=== PATIENT | female | born 1965 | race Caucasian/White ===

== ENCOUNTER 2017-12-31 11:42 | Emergency (ER) | payer BC ==
[2017-12-31 13:59] LABS: Amphetamine Screen,Urine Detected (NotDetected); Barbiturate Screen,Urine Not Detected (NotDetected); Benzodiazepines Screen,Urine Detected (NotDetected); Cocaine Screen,Urine Not Detected (NotDetected); Methadone Screen, Urine Not Detected (NotDetected); Opiate Screen,Urine Not Detected (NotDetected); Oxycodone Screen, Urine Not Detected (NotDetected); Phencyclidine Screen,Urine Not Detected (NotDetected); Tricyclic Antidepressant,Urine Not Detected (NotDetected); Urn Cannabinoid Scrn Not Detected (NotDetected)
--- NOTE | 2017-12-31 14:21 | ED ---
Psych HPI - General Chief Complaint: Psychiatric Symptoms Stated Complaint: mental health Time Seen by Provider: 12/31/17 12:23 Source: patient, RN notes reviewed Mode of arrival: ambulatory - History of Present Illness Initial Comments: This is a 52-year-old female history bipolar disorder who was brought in for evaluation for possible exacerbation. He is been on different levels of medication including Vyvanse. She hasn't been sleeping well and eating well. She is very anxious complains her rash some confusion racing thoughts occasional chest discomfort. Unclear what the etiology is he states he has been using a new lotion and oil. The rash is been there for about 3 days on her inner upper thighs as well as her abdominal area. Per her friend who is with her she normally starts to swimming and spirals into full-blown lisbeth or depression. No fevers chills nausea vomiting sweats no drug or alcohol use. MD Complaint: other - Related Data Home Medications Medication Instructions Recorded Confirmed Levothyroxine Sodium [Synthroid] 100 mcg PO DAILY@0000 05/11/16 12/31/17 Cholecalciferol [Vitamin D3] 1,000 unit PO DAILY 12/31/17 12/31/17 Lisdexamfetamine Dimesylate 40 mg PO QAM 12/31/17 12/31/17 [Vyvanse] Lurasidone [Latuda] 40 mg PO HS 12/31/17 12/31/17 Sesame Oil 1 cap PO DAILY 12/31/17 12/31/17 Silver Drop 1 drop PO DAILY 12/31/17 12/31/17 Vitamin B Complex/Folic Acid 0.4 mg PO DAILY 12/31/17 12/31/17 [B-Complex Tablet] Wheat Germ 1 tab PO DAILY 12/31/17 12/31/17 Allergies Allergy/AdvReac Type Severity Reaction Status Date / Time No Known Allergies Allergy Verified 12/31/17 12:42 Review of Systems ROS Statement: Those systems with pertinent positive or pertinent negative responses have been documented in the HPI. ROS Other: All systems not noted in ROS Statement are negative. Past Medical History Past Medical History: No Reported History History of Any Multi-Drug Resistant Organisms: None Reported Past Surgical History: Tonsillectomy Additional Past Surgical History / Comment(s): D&C, colonoscopy Past Anesthesia/Blood Transfusion Reactions: No Reported Reaction Past Psychological History: ADD/ADHD, Anxiety, Bipolar Smoking Status: Never smoker Past Alcohol Use History: None Reported Past Drug Use History: None Reported - Past Family History Mother Additional Family Medical History / Comment(s): Mother is alive and healthy at age 74. Father Additional Family Medical History / Comment(s): Father is alive and well at age 79, pts. paternal grandfather had an ND Brother(s) Additional Family Medical History / Comment(s): Patient has 4 brothers one from suicide. She has 1 sister with no major medical problems. General Exam - General Exam Comments Initial Comments: This is a well-developed well-nourished awake alert oriented 3 female she is very anxious Limitations: no limitations General appearance: alert, in no apparent distress Head exam: Present: atraumatic, normocephalic, normal inspection Eye exam: Present: normal appearance, PERRL, EOMI. Absent: scleral icterus, conjunctival injection, periorbital swelling ENT exam: Present: normal exam, mucous membranes moist Neck exam: Present: normal inspection. Absent: tenderness, meningismus, lymphadenopathy Respiratory exam: Present: normal lung sounds bilaterally. Absent: respiratory distress, wheezes, rales, rhonchi, stridor Cardiovascular Exam: Present: regular rate, normal rhythm, normal heart sounds. Absent: systolic murmur, diastolic murmur, rubs, gallop, clicks GI/Abdominal exam: Present: other (A macular rash is noted on the abdominal wall. No definite open wounds.) Extremities exam: Present: full ROM, normal capillary refill, other (Verified erythematous rash noted in her thighs bilaterally.) Back exam: Present: full ROM. Absent: tenderness Neurological exam: Present: alert, oriented X3, CN II-XII intact Psychiatric exam: Present: anxious Skin exam: Present: warm, dry, intact. Absent: normal color Course Vital Signs 12/31/17 12/31/17 12:06 14:20 Temperature 98.1 F 98.5 F Pulse Rate 68 72 Respiratory 20 16 Rate Blood Pressure 113/76 129/71 O2 Sat by Pulse 98 98 Oximetry Medical Decision Making - Medical Decision Making The patient was evaluated by psychiatric service and will be discharged with outpatient follow-up. - Lab Data Lab Results 12/31/17 Range/Units 13:30 Urine Opiates Screen Not Detected (NotDetected) Ur Oxycodone Screen Not Detected (NotDetected) Urine Methadone Screen Not Detected (NotDetected) Ur Propoxyphene Screen Not Detected (NotDetected) Ur Barbiturates Screen Not Detected (NotDetected) U Tricyclic Antidepress Not Detected (NotDetected) Ur Phencyclidine Scrn Not Detected (NotDetected) Ur Amphetamines Screen Detected H (NotDetected) U Methamphetamines Scrn Not Detected (NotDetected) U Benzodiazepines Scrn Detected H (NotDetected) Urine Cocaine Screen Not Detected (NotDetected) U Marijuana (THC) Screen Not Detected (NotDetected) Disposition Clinical Impression: Bipolar disorder Disposition: HOME SELF-CARE Condition: Good Instructions: Bipolar Disorder (ED) Additional Instructions: Follow-up outpatient as per instructions from the EPS service Is patient prescribed a controlled substance at d/c from ED?: No Referrals: Ryne Ngo MD [Primary Care Provider] - 1-2 days
[2017-12-31 16:17] VITALS: BP 108/84; PULSE 64; RESP 18; TEMP 98
== END 2017-12-31 16:14 | disposition home or self-care (01) ==
LOC: EC 11:42
DX: F31.9 Bipolar disorder, unspecified (principal); F41.9 Anxiety disorder, unspecified; R21 Rash and other nonspecific skin eruption; F90.9 Attention-deficit hyperactivity disorder, unspecified type; Z79.899 Other long term (current) drug therapy
CPT/HCPCS: 80306; 82075; 99284

== ENCOUNTER 2018-01-05 20:04 | Inpatient (IN) | payer BC ==
--- NOTE | 2018-01-05 20:48 | ED ---
Psych HPI - General Chief Complaint: Psychiatric Symptoms Stated Complaint: eval Time Seen by Provider: 01/05/18 20:43 Source: patient, family, RN notes reviewed Mode of arrival: ambulatory - History of Present Illness Initial Comments: This is a 52-year-old female history of bipolar disorder who was brought in by her because of manic behavior. She was actually here 5 days ago and discharge but she become worse since that time. She is apparently taking medications that she is supposed to she's not been sleeping even manic she's been delusional demonstrating flight of ideas. She complains some bruises she thinks she may be she didn't moving furniture and doing many things. No reports of fevers chills nausea vomiting sweats or other symptoms. Patient does states she doesn't feel comfortable with the color blue which are the color of my scrubs. There is reported that she may be having urinary frequency. No other complaints she does have some old bruising the patient's is unsure how she got those he is unaware of any trauma other than anywhere moving some furniture today. MD Complaint: feels depressed - Related Data Home Medications Medication Instructions Recorded Confirmed Levothyroxine Sodium [Synthroid] 100 mcg PO DAILY@0000 05/11/16 12/31/17 Cholecalciferol [Vitamin D3] 1,000 unit PO DAILY 12/31/17 12/31/17 Lisdexamfetamine Dimesylate 40 mg PO QAM 12/31/17 12/31/17 [Vyvanse] Lurasidone [Latuda] 40 mg PO HS 12/31/17 12/31/17 Sesame Oil 1 cap PO DAILY 12/31/17 12/31/17 Silver Drop 1 drop PO DAILY 12/31/17 12/31/17 Vitamin B Complex/Folic Acid 0.4 mg PO DAILY 12/31/17 12/31/17 [B-Complex Tablet] Wheat Germ 1 tab PO DAILY 12/31/17 12/31/17 Allergies Allergy/AdvReac Type Severity Reaction Status Date / Time No Known Allergies Allergy Verified 12/31/17 12:42 Review of Systems ROS Statement: Those systems with pertinent positive or pertinent negative responses have been documented in the HPI. ROS Other: All systems not noted in ROS Statement are negative. Past Medical History Past Medical History: No Reported History History of Any Multi-Drug Resistant Organisms: None Reported Past Surgical History: Tonsillectomy Additional Past Surgical History / Comment(s): D&C, colonoscopy Past Anesthesia/Blood Transfusion Reactions: No Reported Reaction Past Psychological History: ADD/ADHD, Anxiety, Bipolar Smoking Status: Current every day smoker Past Alcohol Use History: Occasional Past Drug Use History: None Reported - Past Family History Mother Additional Family Medical History / Comment(s): Mother is alive and healthy at age 74. Father Additional Family Medical History / Comment(s): Father is alive and well at age 79, pts. paternal grandfather had an [place] Brother(s) Additional Family Medical History / Comment(s): Patient has 4 brothers one from suicide. She has 1 sister with no major medical problems. General Exam - General Exam Comments Initial Comments: This is a well-developed well-nourished awake alert anxious appearing female she does demonstrate a flight of ideas and manic behavior. Limitations: no limitations General appearance: alert, anxious Head exam: Present: atraumatic, normocephalic, normal inspection Eye exam: Present: normal appearance, PERRL, EOMI. Absent: scleral icterus, conjunctival injection, periorbital swelling ENT exam: Present: normal exam, mucous membranes moist Neck exam: Present: normal inspection. Absent: tenderness, meningismus, lymphadenopathy Respiratory exam: Present: normal lung sounds bilaterally. Absent: respiratory distress, wheezes, rales, rhonchi, stridor Cardiovascular Exam: Present: regular rate, normal rhythm, normal heart sounds. Absent: systolic murmur, diastolic murmur, rubs, gallop, clicks GI/Abdominal exam: Present: soft, normal bowel sounds. Absent: distended, tenderness, guarding, rebound, rigid Extremities exam: Present: normal inspection, full ROM, normal capillary refill. Absent: tenderness, pedal edema, joint swelling, calf tenderness Back exam: Present: normal inspection Neurological exam: Present: alert, oriented X3, CN II-XII intact Psychiatric exam: Present: anxious, manic Skin exam: Present: warm, dry, intact, other (Some evidence of old ecchymotic areas one on the left lateral orbit and on the wrists.). Absent: rash Course Vital Signs 01/05/18 20:11 Temperature 98.2 F Pulse Rate 90 Respiratory 18 Rate Blood Pressure 116/65 O2 Sat by Pulse 98 Oximetry Medical Decision Making - Medical Decision Making The patient was evaluated by psychiatric service and will be admitted. She is refusing assigning her and the petition negative clinical certification. - Lab Data Lab Results 01/05/18 01/05/18 01/05/18 Range/Units 20:42 20:42 20:42 Urine Color Yellow Urine Appearance Clear (Clear) Urine pH 6.0 (5.0-8.0) Ur Specific [place] 1.020 (1.001-1.035) Urine Protein Trace H (Negative) Urine Glucose (UA) Negative (Negative) Urine Ketones 1+ H (Negative) Urine Blood Trace H (Negative) Urine Nitrite Negative (Negative) Urine Bilirubin Negative (Negative) Urine Urobilinogen 2.0 (<2.0) mg/dL Ur Leukocyte Esterase Moderate H (Negative) Urine RBC 12 H (0-5) /hpf Urine WBC 5 (0-5) /hpf Ur Squamous Epith Cells 4 (0-4) /hpf Urine Bacteria Rare H (None) /hpf Urine Mucus Rare H (None) /hpf Urine HCG, Qual Not Detected (Not Detectd) Urine Opiates Screen Not Detected (NotDetected) Ur Oxycodone Screen Not Detected (NotDetected) Urine Methadone Screen Not Detected (NotDetected) Ur Propoxyphene Screen Not Detected (NotDetected) Ur Barbiturates Screen Not Detected (NotDetected) U Tricyclic Antidepress Detected H (NotDetected) Ur Phencyclidine Scrn Not Detected (NotDetected) Ur Amphetamines Screen Not Detected (NotDetected) U Methamphetamines Scrn Not Detected (NotDetected) U Benzodiazepines Scrn Detected H (NotDetected) Urine Cocaine Screen Not Detected (NotDetected) U Marijuana (THC) Screen Not Detected (NotDetected) Disposition Clinical Impression: Bipolar I disorder, current or most recent episode manic, severe Disposition: TRANSFER TO PSYCH HOSP/UNIT Condition: Stable Referrals: Ryne Ngo MD [Primary Care Provider] - 1-2 days
[2018-01-05 20:52] LABS: Appearance,Urine Clear (Clear); Bacteria,Urine Rare /hpf; Bilirubin,Urine Negative (Negative); Blood,Urine Trace (Negative); Color,Urine Yellow; Glucose,Urine (UA) Negative (Negative); Ketones,Urine 1+ (Negative); Leukocyte Esterase,Urine Moderate (Negative); Mucus,Urine Rare /hpf; Nitrite,Urine Negative (Negative); Protein,Urine Trace (Negative); RBC,Urine 12 /hpf (0-5); Squamous Epithelial Cell,Urine 4 /hpf (0-4); WBC,Urine 5 /hpf (0-5)
[2018-01-05 21:02] LABS: Amphetamine Screen,Urine Not Detected (NotDetected); Barbiturate Screen,Urine Not Detected (NotDetected); Benzodiazepines Screen,Urine Detected (NotDetected); Cocaine Screen,Urine Not Detected (NotDetected); Methadone Screen, Urine Not Detected (NotDetected); Opiate Screen,Urine Not Detected (NotDetected); Oxycodone Screen, Urine Not Detected (NotDetected); Phencyclidine Screen,Urine Not Detected (NotDetected); Tricyclic Antidepressant,Urine Detected (NotDetected); Urn Cannabinoid Scrn Not Detected (NotDetected)
[2018-01-05] MEDS ORDERED: MAGNESIUM HYDROXIDE 2,400 MG/10 ML CUP PO PRN (22:26)
[2018-01-05] MEDS ORDERED: MAG HYDROX/AL HYDROX/SIMETH 30 ML CUP PO PRN (22:26)
[2018-01-05] MEDS ORDERED: ACETAMINOPHEN TAB 325 MG TAB PO PRN (22:26)
[2018-01-05] MEDS ORDERED: ZIPRASIDONE 20 MG VIAL IM PRN (22:26)
[2018-01-05] MEDS ORDERED: LORazepam 2 MG/ML INJ ONE (22:37)
[2018-01-05] MEDS ORDERED: HALOPERIDOL LACTATE 5 MG/ML 1 ML VIAL IM STA (23:00)
[2018-01-05] MEDS ORDERED: LORazepam 2 MG/ML INJ IM STA (23:01)
[2018-01-05] MEDS: LORazepam 2 MG/ML INJ IM PRN (23:04)
[2018-01-06 03:55] VITALS: BMI 25.2
[2018-01-06] MEDS ORDERED: LEVOTHYROXINE 100 MCG TAB PO SCH (06:30)
[2018-01-06] MEDS: DIVALPROEX 500 MG TABLET.DR PO SCH ×2 (08:57→21:26)
[2018-01-06] MEDS ORDERED: NICOTINE 14MG/24HR PATCH TRANSDERM SCH (09:00)
[2018-01-06 09:46] LABS: ALT 28 U/L (9-52); AST 28 U/L (14-36); Albumin 4.3 g/dL (3.5-5.0); Alkaline Phosphatase 89 U/L (38-126); Anion Gap 13 mmol/L; Bilirubin, Delta 0.3 mg/dL (0.0-0.2); Bilirubin,Unconjugated 0.7 mg/dL (0.0-1.1); Blood Urea Nitrogen 14 mg/dL (7-17); Calcium 9.3 mg/dL (8.4-10.2); Carbon Dioxide 27 mmol/L (22-30); Chloride 103 mmol/L (98-107); Cholesterol 169 mg/dL (<200); Glucose 155 mg/dL (74-99); HDL Cholesterol 79 mg/dL (40-60); LDL Cholesterol,Calculated 77 mg/dL (0-99); Potassium 3.8 mmol/L (3.5-5.1); Sodium 143 mmol/L (137-145); Total Protein 6.8 g/dL (6.3-8.2); Triglycerides 65 mg/dL (<150)
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
[2018-01-06] MEDS: METOPROLOL TARTRATE 12.5 MG TAB PO SCH ×2 (16:00→21:26)
--- NOTE | 2018-01-06 17:17 | CONS ---
CONSULTATION DATE OF CONSULTATION: January 06, 2018. REASON FOR CONSULTATION: Medical management requested by Dr. Gomez. CONSULTATION: This is a 52-year-old patient who presented to the ER last night. The patient has a known history of bipolar disorder with manic episode. She is brought in by the . She was in the ER 4 or 5 days ago and discharged from there. The patient has not been sleeping well, has been taking medications and has been delusional and demonstrating flight of ideas. During my interview she is very uncomfortable, walking up and down and cannot sit down. She talked about moving furniture and she may be . Denies any respiratory or urinary symptoms. She talked about a cat. She is rather hungry. She is admitted with manic episode to the psychiatry unit. The patient apparently is a smoker and the patient also takes Synthroid. It is difficult to get more of a history as she keeps getting up and walking about and have to sit her down. Otherwise, she is very pleasant in the conversation. REVIEW OF SYSTEMS: Constitutional: Restless, not sleeping well. Good appetite. HEENT none. Respiratory none. Cardiovascular none. Gastrointestinal none. Genitourinary none. Musculoskeletal none. Dermatological and hematologic, lymphatic none. Psychiatry as above. Neurological: Restless, fidgety. PAST MEDICAL HISTORY: Bipolar disorder with manic episode, hypothyroid. PAST SURGICAL HISTORY: Tonsillectomy, D and C. SOCIAL HISTORY: The patient is a middle school english teacher. . Occasionally drinks. No smoking. No alcohol. FAMILY HISTORY: Reviewed, noncontributory to presentation. HOME MEDICATIONS: 1 tablet p.o. daily, vitamin B complex 0.4 mg p.o. daily, 1 drop p.o. daily, sesame oil 1 capsule p.o. daily, Latuda 40 mg q.h.s., 40 mg p.o. daily. Synthroid 100 mcg p.o. daily and vitamin D3 1000 units p.o. daily. ALLERGIES: None. PHYSICAL EXAMINATION: Temperature 97.3, pulse 82, respiratory 18, blood pressure 119/76, pulse ox 97% on room air. GENERAL APPEARANCE: Average build, fidgety, walking about and sits down. EYES: Pupils are equal. Conjunctivae normal. HEENT: External appearance of nose and ears normal. Oral cavity normal. NECK: JVD not raised. Mass not palpable. RESPIRATORY: Effort normal. Lungs fair entry. CARDIOVASCULAR: 1st and 2nd sounds normal. No edema. ABDOMEN: Soft, nontender. Liver and spleen not palpable. LYMPHATICS: No lymph nodes palpable in the neck or axilla. PSYCHIATRY: See my notes above and more details in the psychiatry's notes. NEUROLOGICAL: Pupils, no facial asymmetry. Power and sensation grossly intact, restlessness. INVESTIGATIONS: Potassium 3.8. TSH 0.075 and free T4 3.49. UA positive for leukocyte esterase. Urine drug screen positive for tricyclic antidepressants, benzodiazepine. Valproic acid 86.7. ASSESSMENT: 1. Bipolar disorder with manic episode with element of psychosis. 2. Thyrotoxicosis from over replacement with Synthroid, possibly contributing to symptoms above. 3. Insomnia from above. PLAN: At this point will DC patient's Synthroid as the increased half-life and will resume at half the dose after 48 hours. Other antipsychotics per the psychiatrist. To curtail, I did not check overdrive. Will give the patient Lopressor 12.5 p.o. 3 times a day for 6 doses. Thank you, Dr. Gomez. MMRIOL / IJN: [id number] /
[2018-01-06] MEDS: LORazepam 1 MG TAB PO PRN (17:26)
[2018-01-06 18:46] LABS: Hemoglobin A1C 4.8 % (4.0-6.0)
[2018-01-06] MEDS: QUEtiapine 200 MG TAB PO SCH (21:26)
[2018-01-07] MEDS: LORazepam 1 MG TAB PO PRN ×2 (06:00→16:25)
[2018-01-07] MEDS: DIVALPROEX 500 MG TABLET.DR PO SCH ×2 (09:29→21:43)
[2018-01-07] MEDS: METOPROLOL TARTRATE 12.5 MG TAB PO SCH ×3 (09:29→21:43)
--- NOTE | 2018-01-07 14:27 | P.PN ---
Subjective Progress Note Date: 01/07/18 Principal diagnosis: Bipolar disorder most recent episode manic I reviewed the medical record, attempted to interview the patient and discuss her treatment and treatment plan during team meeting. She remains on one-to- one due to her restless, impulsive and aggressive behavior. She has difficulty sitting still or attending to a conversation. Her answers to questions were tangential. Objective - Vital Signs Vital signs: Vital Signs Temp 97.3 F L 01/05/18 22:11 Pulse 105 H 01/07/18 06:05 Resp 16 01/07/18 06:05 BP 108/72 01/07/18 06:05 Pulse Ox 97 01/05/18 22:11 - Psychiatric Psychiatric Comment(s): She presented as a tall disheveled appearing woman with long unkempt dark hair. She had difficulty concentrating and attending to the interview. She had a distressed and labile facial expression. She is alert and oriented to person and place. She was restless, agitated and unable to sit still during the interview. She would get up frequently and paced the room Her speech was spontaneous with increased rate and rhythm but normal volume. Her affect was labile, irritable and elevated. She did not express suicidal ideation, wishes or homicidal ideation. She did not expressed depressive cognitions such as hopelessness, helplessness or worthlessness. She did not express clear paranoid or delusional thoughts or ideas. Her thinking was disorganized, illogical and not goal directed. She demonstrated clang associations and neologisms. She denied hallucinations and did not appear to be responding to internal stimuli. - Labs CBC & Chem 7: 01/06/18 08:29 Assessment and Plan Assessment: Overall she is severely mentally ill and minimally improve from admission (1) Bipolar I disorder, current or most recent episode manic, severe Current Visit: Yes Status: Acute Priority: High Code(s): F31.13 - BIPOLAR DISORD, CRNT EPSD MANIC W/O PSYCH FEATURES, SEVERE SNOMED Code(s): 013081767 (2) Essential hypertension Current Visit: Yes Status: Chronic Priority: Low Code(s): I10 - ESSENTIAL (PRIMARY) HYPERTENSION SNOMED Code(s): 46265361 (3) Hyperthyroidism Current Visit: Yes Status: Acute Priority: High Code(s): E05.90 - THYROTOXICOSIS, UNSP WITHOUT THYROTOXIC CRISIS OR STORM SNOMED Code(s): 67123183 Plan: Continue inpatient hospitalization due to severity of lisbeth. Probate hearing for involuntary hospitalization pending. Continue Depakote 500 mg by mouth twice a day, Seroquel 600 mg at bedtime and lorazepam 1 mg by mouth 3 times a day when necessary for anxiety or agitation and/or 1 mg IM every 6 hours when necessary for agitation acute psychosis. Continue Lopressor 12.5 mg by mouth 3 times a day for treatment of hypertension. The [employer] sales consultant action finisher reduced her dose of Synthroid to 50 g per day. Continue one-to-one. Evaluate clinical status response to treatment daily basis. She is unable to participate in therapeutic groups or activities at the current time.
[2018-01-07] MEDS: QUEtiapine 200 MG TAB PO SCH (21:43)
--- NOTE | 2018-01-07 22:15 | PN ---
PROGRESS NOTE DATE OF SERVICE: 01/07/2018 PRESENTING COMPLAINT: Psychotic. INTERVAL HISTORY: This patient presented with bipolar disorder with psychosis and element of hyperthyroidism, uncontrolled from over replacement. The patient is somewhat better today, although is still psychotic, though less fidgety. REVIEW OF SYSTEMS: Done for constitutional, cardiovascular, GI, pulmonary; relevant findings as above. CURRENT MEDICATIONS: Reviewed that include Depakote, Lopressor, and Seroquel. PHYSICAL EXAMINATION: Temperature on examination afebrile, pulse 107, respiration 20, blood pressure 113/73. GENERAL APPEARANCE: Less fidgety. EYES: Pupils are equal. Conjunctivae are normal. HEENT: External appearance of nose and ears normal. Oral cavity normal. NECK: JVD not raised. Mass not palpable. Respiratory effort normal. Lungs are clear. CARDIOVASCULAR: First and second sounds normal. No edema. NEUROLOGICAL: There is no tremor of the resting tongue and there is fine tremor of the hands. INVESTIGATIONS: No blood work from today. ASSESSMENT: 1. Bipolar disorder with manic episode with element of psychosis. 2. 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 3. Insomnia from above. PLAN: The patient's dose of Synthroid has been cut back. We will check patient's free T4 level tomorrow. Care was discussed with Dr. Gomez. Follow. MMODL / IJN: [id number] /
[2018-01-08] MEDS: DIVALPROEX 500 MG TABLET.DR PO SCH ×2 (08:43→20:45)
[2018-01-08] MEDS: METOPROLOL TARTRATE 12.5 MG TAB PO SCH (10:17)
--- NOTE | 2018-01-08 15:29 | P.PN ---
Subjective Progress Note Date: 01/08/18 Principal diagnosis: Bipolar disorder most recent episode manic I reviewed the medical record, interviewed the patient and discuss her treatment and treatment plan during team meeting. She remains on one-to-one due to her restless and impulsive behavior. She sat during most of the interview only once getting up and pacing the office. Her primary concern was discharged and she requested several times to be discharged. She was able to focus briefly and answered questions appropriately. She shows little insight or understanding of the severity of her mental illness or need for mental health treatment. According to record she slept 6 hours last night. She has not attended therapeutic groups or activities. Objective - Vital Signs Vital signs: Vital Signs Temp 97.3 F L 01/05/18 22:11 Pulse 107 H 01/07/18 16:27 Resp 20 01/07/18 16:27 BP 111/73 01/07/18 16:27 Pulse Ox 97 01/05/18 22:11 - Psychiatric Psychiatric Comment(s): She presented as a tall woman with long thick dark hair. She had she was able to concentrate and attend to to most of the interview and remain on topic for brief periods of time. She had a distressed facial expression. She appeared sedated. She is alert and oriented to person and place. She was restless but sat during the bulk of the interview. Her speech was spontaneous with increased rate and decreased volume. Her affect was labile and elevated. She did not express suicidal ideation, wishes or homicidal ideation. She did not expressed depressive cognitions such as hopelessness, helplessness or worthlessness. She did not express clear paranoid or delusional thoughts or ideas. Her thinking was disorganized, illogical and not goal directed. She demonstrated clang associations and neologisms. She denied hallucinations and did not appear to be responding to internal stimuli. - Labs CBC & Chem 7: 01/06/18 08:29 Assessment and Plan Assessment: Overall she is severely mentally ill and moderately improve from admission (1) Bipolar I disorder, current or most recent episode manic, severe Current Visit: Yes Status: Acute Priority: High Code(s): F31.13 - BIPOLAR DISORD, CRNT EPSD MANIC W/O PSYCH FEATURES, SEVERE SNOMED Code(s): 939315884 (2) Essential hypertension Current Visit: Yes Status: Chronic Priority: Low Code(s): I10 - ESSENTIAL (PRIMARY) HYPERTENSION SNOMED Code(s): 40280198 (3) Hyperthyroidism Current Visit: Yes Status: Acute Priority: High Code(s): E05.90 - THYROTOXICOSIS, UNSP WITHOUT THYROTOXIC CRISIS OR STORM SNOMED Code(s): 26176275 Plan: Continue inpatient hospitalization due to severity of lisbeth. Probate hearing for involuntary hospitalization pending. Continue Depakote 500 mg by mouth twice a day, Seroquel 600 mg at bedtime and lorazepam 1 mg by mouth 3 times a day when necessary for anxiety or agitation and/or 1 mg IM every 6 hours when necessary for agitation acute psychosis. Continue Lopressor 12.5 mg by mouth 3 times a day for treatment of hypertension. Continue Synthroid to 50 g per day for the treatment of hypothyroid and adjust the dose as per the recommendation of the devops consultant. Evaluate clinical status response to treatment daily basis. She is unable to participate in therapeutic groups or activities at the current time.
[2018-01-08] MEDS: LORazepam 1 MG TAB PO PRN (15:36)
--- NOTE | 2018-01-08 17:58 | PN ---
PROGRESS NOTE DATE OF SERVICE: 01/08/2018 PRESENTING COMPLAINT: Psychotic. INTERVAL HISTORY: This patient presented with bipolar disorder with psychosis and lisbeth and thyrotoxicosis. The patient's Synthroid dose continues to be held. The patient continues to improve, making more sense, though still a little bit more restless. The patient tolerating a diet. REVIEW OF SYSTEMS: Done for constitutional, cardiovascular, GI, pulmonary; relevant findings as above. CURRENT MEDICATIONS: Reviewed. Patient's Synthroid remains to be held. EXAMINATION: Afebrile, pulse 103, respirations 18, blood pressure 97/66. GENERAL APPEARANCE: Less restless. EYES: Pupils equal. Conjunctivae normal. HEENT: External appearance of nose and ears normal. Oral cavity normal. NECK: JVD not raised. Mass not palpable. RESPIRATORY: Effort normal. LUNGS: Fair air entry. CARDIOVASCULAR: First and second sounds normal. No edema. ABDOMEN: Soft, nontender. Liver and spleen not palpable. PSYCHIATRY: The patient's speech appears to be less pressured; hence, the patient is somewhat making more sense today. NEUROLOGICAL: No tremors of the hands and tongue. INVESTIGATIONS: Free T4 is 2.70. ASSESSMENT: 1. Bipolar disorder, manic episode with element of psychosis. 2. Thyrotoxicosis from overreplacement with Synthroid, slowly improving. 3. Insomnia from above. 4. Sinus tachycardia from thyrotoxicosis. PLAN: Continue to hold off patient's Synthroid. The patient to resume 50 mg of Synthroid starting tomorrow and that is the dose she should be sent home on. Thank you Dr. Gomez. MMRIOL / IJN: [id number] /
[2018-01-08] MEDS: QUEtiapine 200 MG TAB PO SCH (20:45)
[2018-01-09] MEDS: LORazepam 1 MG TAB PO PRN ×3 (01:35→18:02)
[2018-01-09] MEDS ORDERED: LEVOTHYROXINE 50 MCG TAB PO SCH (06:30)
[2018-01-09] MEDS: DIVALPROEX 500 MG TABLET.DR PO SCH ×2 (08:01→20:56)
--- NOTE | 2018-01-09 14:47 | P.PN ---
Subjective Principal diagnosis: Bipolar disorder most recent episode manic I reviewed the medical record, interviewed the patient and discuss her treatment and treatment plan during team meeting. We discontinue the one-to- one yesterday and she has shown no increase in impulsivity or disruptive behavior. She paces the unit and is occasionally observed talking to herself. During our interview she is preoccupied with discharged. She denied the need for continued hospitalization. However, she accepted my recommendation to remain in the hospital. According to record she slept 6 hours last night. She does not attended therapeutic groups or activities. Objective - Vital Signs Vital signs: Vital Signs Temp 97.7 F 01/09/18 02:20 Pulse 132 H 01/09/18 02:20 Resp 18 01/09/18 02:20 BP 89/60 01/09/18 02:20 Pulse Ox 97 01/05/18 22:11 - Psychiatric Psychiatric Comment(s): She presented as a tall woman with long thick dark hair. She was able to concentrate and attend to to most of the interview and remain on topic for brief periods of time. She had a distressed facial expression. She appeared less sedated than she did yesterday. She is alert and oriented to person and place. She was restless but sat during the bulk of the interview. Her speech was spontaneous with increased rate and decreased volume. Her affect was labile and elevated. She did not express suicidal ideation, wishes or homicidal ideation. She did not expressed depressive cognitions such as hopelessness, helplessness or worthlessness. She did not express clear paranoid or delusional thoughts or ideas. Her thinking was disorganized, illogical and not goal directed. She continues to demonstrated clang associations and neologisms. She denied hallucinations and did not appear to be responding to internal stimuli. - Labs CBC & Chem 7: 01/06/18 08:29 Labs: Abnormal Lab Results - Last 24 Hours (Table) 01/09/18 Range/Units 13:02 Free T4 2.50 H (0.78-2.19) ng/dL Assessment and Plan Assessment: Overall she is moderately to severely mentally ill and moderately improve from admission (1) Bipolar I disorder, current or most recent episode manic, severe Current Visit: Yes Status: Acute Priority: High Code(s): F31.13 - BIPOLAR DISORD, CRNT EPSD MANIC W/O PSYCH FEATURES, SEVERE SNOMED Code(s): 188596349 (2) Hyperthyroidism Current Visit: Yes Status: Acute Priority: High Code(s): E05.90 - THYROTOXICOSIS, UNSP WITHOUT THYROTOXIC CRISIS OR STORM SNOMED Code(s): 18204618 Plan: Continue inpatient hospitalization due to severity of lisbeth. Probate hearing for involuntary hospitalization pending. Continue Depakote 500 mg by mouth twice a day, Seroquel 600 mg at bedtime and lorazepam 1 mg by mouth 3 times a day when necessary for anxiety or agitation and/or 1 mg IM every 6 hours when necessary for agitation acute psychosis. Continue Synthroid to 50 g per day for the treatment of hypothyroid and adjust the dose as per the recommendation of the building performance consultant. Evaluate clinical status response to treatment daily basis. She is unable to participate in therapeutic groups or activities at the current time.
[2018-01-09] MEDS: QUEtiapine 200 MG TAB PO SCH (20:56)
[2018-01-09] MEDS: LORazepam 2 MG/ML INJ IM PRN (23:57)
--- NOTE | 2018-01-10 06:21 | PN ---
PROGRESS NOTE DATE OF SERVICE: 01/09/18. PRESENT COMPLAINT: Hyperactive. INTERVAL HISTORY: This is a patient who presented with bipolar disorder with psychosis and manic episode with significant contribution from thyrotoxicosis. The patient's Synthroid dose was held and the patient did get a dose this morning 50 mg. Clinically patient is looking more calm, more relaxed, and probably getting close to her baseline. Tolerating a diet, up and about. REVIEW OF SYSTEMS: Done for constitutional, cardiovascular, GI, pulmonary; relevant findings as above. MEDICATIONS: The patient did get one dose of Synthroid this morning. PHYSICAL EXAMINATION: On examination: Temperature 97.7, pulse 103, respiration 18, blood pressure 97/66. GENERAL APPEARANCE: Appears more rested. EYES: Pupils equal. Conjunctivae normal. HEENT: External appearance of nose and ears are normal. Oral cavity normal. NECK: JVD not raised. Mass not palpable. RESPIRATORY: Effort normal. Lungs are clear. CARDIOVASCULAR: 1st and 2nd sounds, no edema. ABDOMEN: Soft, nontender. Liver and spleen not palpable. PSYCHIATRY: The patient appears more relaxed and is able to carry out a conversation regarding Synthroid. INVESTIGATIONS: Free T4 2.5. ASSESSMENT: 1. Bipolar disorder, manic episode with some psychosis. 2. Thyrotoxicosis from over replacement of Synthroid. Continues to improve with free T4 coming down. 3. Insomnia for above. 4. Sinus tachycardia from thyrotoxicosis. PLAN: Spoke to the patient. Also spoke to the nurse. We will hold off tomorrow morning of Synthroid and resume the Synthroid from 01/11/18 and patient can be sent home on that dose with the TSH level to be checked anywhere from 4-6 weeks. MMODL / IJN: [id number] /
[2018-01-10] MEDS: DIVALPROEX 500 MG TABLET.DR PO SCH ×2 (09:26→20:53)
--- NOTE | 2018-01-10 13:34 | P.PN ---
Subjective Progress Note Date: 01/10/18 Principal diagnosis: Bipolar disorder most recent episode manic I reviewed the medical record, interviewed the patient and discuss her treatment and treatment plan during team meeting. She became markedly agitated yesterday evening where she attempted to barricade her room from her roommate, threw towels, washrag and her clothes over the desk and attempted to rummage through her roommate's belongings. Her agitation diminished considerably after we administered1 mg of lorazepam IM. She recalled that she was "upset" and attempted to explain the reason for distress. However her speech was slurred and she had difficulty remaining on topic. The best that I couldn't understand is that she does not wish to have a roommate and does not wish to remain in the hospital. She talked about feeling "paranoid" because she could not lock her bedroom door. As during prior interviews she was preoccupied with being discharged. She denied the need for continued hospitalization. She was less receptive to my recommendation that she remains unwell and should remain in the hospital until she recovers more. According to record she was restless last night and only slept 4 hours last night. She attended one therapeutic groups and the therapist described her as bizarre, disheveled, fragmented, tangential and expressing a word salad. Objective - Vital Signs Vital signs: Vital Signs Temp 97.7 F 01/09/18 02:20 Pulse 133 H 01/10/18 06:45 Resp 14 01/10/18 06:45 BP 118/76 01/10/18 06:45 Pulse Ox 97 01/05/18 22:11 - Psychiatric Psychiatric Comment(s): She presented as a tall woman with long thick dark hair. She was dressed in a pink longsleeve shirt and green shorts. She appeared sedated. She appeared to have difficulty concentrating and attending to the interview. She was easily distracted. Her answers to questions were tangential. She had a distressed facial expression. She is alert and oriented to person and place. She was not restless and sent to the interview. Her speech was spontaneous with increased rate and decreased volume. She was slurring her words. Her affect was labile and elevated. She did not express suicidal ideation, wishes or homicidal ideation. She did not expressed depressive cognitions such as hopelessness, helplessness or worthlessness. She did not express clear paranoid or delusional thoughts or ideas. Her thinking was disorganized, illogical and not goal directed. She demonstrated flight of ideas. She continues to demonstrated clang associations and neologisms. She denied hallucinations and did not appear to be responding to internal stimuli. - Labs CBC & Chem 7: 01/06/18 08:29 Labs: Abnormal Lab Results - Last 24 Hours (Table) 01/09/18 Range/Units 13:02 Free T4 2.50 H (0.78-2.19) ng/dL Assessment and Plan Assessment: Overall she is moderately to severely mentally ill and moderately improve from admission (1) Bipolar I disorder, current or most recent episode manic, severe Current Visit: Yes Status: Acute Priority: High Code(s): F31.13 - BIPOLAR DISORD, CRNT EPSD MANIC W/O PSYCH FEATURES, SEVERE SNOMED Code(s): 747172486 (2) Hyperthyroidism Current Visit: Yes Status: Acute Priority: High Code(s): E05.90 - THYROTOXICOSIS, UNSP WITHOUT THYROTOXIC CRISIS OR STORM SNOMED Code(s): 53243250 Plan: Continue inpatient hospitalization due to severity of lisbeth. Probate hearing for involuntary hospitalization pending. Continue Depakote 500 mg by mouth twice a day (serum valproic acid level on 01/06/2018 was 86.7), Seroquel 600 mg at bedtime and lorazepam 1 mg by mouth 3 times a day when necessary for anxiety or agitation and/or 1 mg IM every 6 hours when necessary for agitation acute psychosis. If her symptoms do not improve over the next 48-72 hours, consider a change to a different mood stabilizer such as Abilify. Continue Synthroid to 50 g per day for the treatment of hypothyroid and adjust the dose as per the recommendation of the retirement sales consultant. Evaluate clinical status response to treatment daily basis. She is unable to participate in therapeutic groups or activities at the current time.
--- NOTE | 2018-01-10 19:30 | PN ---
PROGRESS NOTE DATE OF SERVICE: 01/10/2018 PRESENTING COMPLAINT: Hyperactive. INTERVAL HISTORY: The patient admitted with bipolar disorder with psychosis/manic episode and also thyrotoxicosis. The patient's Synthroid dose continues to be held. Free T4 level continues to come down. The patient is somewhat slurring her words today and creating some new words. REVIEW OF SYSTEMS: Done for constitutional, cardiovascular, GI, pulmonary; relevant findings as above. CURRENT MEDICATIONS: Reviewed that include: 1. Depakote 5 mg p.o. b.i.d. 2. Synthroid was held for today and. 3. Seroquel 600 mg q.h.s. EXAMINATION: Temperature 97.7, pulse 132, respirations 18, blood pressure 87/60. GENERAL APPEARANCE: Sitting up, more restful. EYES: Pupils equal. Conjunctivae normal. HEENT: External nose and ears normal. Oral cavity normal. NECK: JVD not raised as above. RESPIRATORY: Effort normal. Lungs are clear. CARDIOVASCULAR: First and second heart sounds normal. No edema. ABDOMEN: Soft, nontender. Liver and spleen not palpable. PSYCHIATRY: As above. INVESTIGATIONS: Free T4 1.99. ASSESSMENT: 1. Bipolar disorder, manic episode, with some psychosis. 2. Thyrotoxicosis, overreplacement. 3. Insomnia from above. 4. Sinus tachycardia from thyrotoxicosis. PLAN: Patient's Synthroid will be resumed tomorrow at 50 mg a day. The patient TSH can be now checked after 4-6 weeks, after which it may be decided the patient may need a change of her medications for the bipolar. MMODL / IJN: [id number] /
[2018-01-10] MEDS: QUEtiapine 200 MG TAB PO SCH (20:53)
[2018-01-11] MEDS: LEVOTHYROXINE 50 MCG TAB PO SCH (07:02)
[2018-01-11] MEDS: DIVALPROEX 500 MG TABLET.DR PO SCH ×2 (09:00→21:16)
--- NOTE | 2018-01-11 19:11 | P.PN ---
Progress Note - Text Progress Note Date: 01/11/18 Interval history: Patient is seen in cross coverage today. She reports that her mood is doing fine. She denies any thoughts of harm to self or others. She does report feeling like she has paranoid thoughts about other patient's behaviors. She makes reference to wanting to be able to go home and talks about following up as an outpatient. Mental status exam: She is alert and cooperative with the interview. Her speech is fluent, not rapid or pressured. At time she appears on the verge of tears. Her mood she describes as fine. She denies any thoughts of harm to self or others. She does relate having paranoid thoughts about other patient's behaviors. She does not show any agitation. Plan: We'll maintain current psychotropic medication regimen, monitor for any side effects in for ongoing response. We'll continue to cover this patient through the weekend.
[2018-01-11] MEDS: QUEtiapine 200 MG TAB PO SCH (21:16)
[2018-01-12] MEDS: LEVOTHYROXINE 50 MCG TAB PO SCH (06:50)
[2018-01-12] MEDS: DIVALPROEX 500 MG TABLET.DR PO SCH ×2 (09:07→20:53)
--- NOTE | 2018-01-12 14:46 | P.PN ---
Progress Note - Text Progress Note Date: 01/12/18 Interval history: Patient is seen again in cross coverage today. She seems to report that she sleeping well and eating enough. She does talk about wanting to go home. She makes reference to people here playing head games and putting on a show. She does does not verbalize any adverse psychotropic medication side effects. Mental status exam: She is alert and cooperative with the interview. Her speech is fluent, not rapid or pressured. She does make reference to people here playing head games and putting on a show. She denies any hallucinations. She does not voice any thoughts of harm to self or others. She does not show any agitation. Plan: Patient will be maintained on current psychotropic medication regimen. Continue to monitor for any medication side effects and monitor her ongoing response.
[2018-01-12] MEDS: QUEtiapine 200 MG TAB PO SCH (20:52)
[2018-01-13] MEDS: LEVOTHYROXINE 50 MCG TAB PO SCH (06:06)
[2018-01-13 07:14] VITALS: RESP 16
[2018-01-13] MEDS: DIVALPROEX 500 MG TABLET.DR PO SCH ×2 (09:09→21:31)
--- NOTE | 2018-01-13 13:56 | P.PN ---
Subjective Progress Note Date: 01/13/18 Principal diagnosis: Bipolar disorder most recent episode manic I reviewed the medical record, interviewed the patient and discuss her treatment and treatment plan during team meeting. She is preoccupied about discharge alleging that she no longer needs to be in the hospital. She feels that she is doing well enough to return home where she and recover in the company of friends and family. She denied other problems or concerns. She's been compliant with medication and is posed no behavioral problems on the unit. She formed an attachment with a developmentally disabled young man on the unit. 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 She interacts little with others staff or peers. She attends few therapeutic groups and activities. She attended one group therapy session over the weekend and the therapist described her as irritable, disheveled and circumstantial. Free T4 from 618 was normal at 1.99. Objective - Vital Signs Vital signs: Vital Signs Temp 98.4 F 01/13/18 06:37 Pulse 88 01/13/18 06:37 Resp 16 01/13/18 06:37 BP 103/60 01/13/18 06:37 Pulse Ox 97 01/05/18 22:11 - Psychiatric Psychiatric Comment(s): She presented as a tall woman with long thick dark hair. She was averagely dressed and neatly groomed. She did not appear sedated. She did not have difficulty concentrating and attending to the interview. She was distractible but able to focus on the interview. She had a blunted facial expression. She is alert and oriented to person and place. She was not restless and was able to sit throughout the interview. Her speech was spontaneous with a slight increase in rate and normal volume. She was tangential and circumstantial. She did not slur her words. Her affect was blunted with slight lability but more stable and appropriate. She did not express suicidal ideation, wishes or homicidal ideation. She did not expressed depressive cognitions such as hopelessness, helplessness or worthlessness. She did not express paranoid or delusional thoughts or ideas. Her thinking was logical and goal directed. She had some flight of ideas. She did not demonstrate clang associations and neologisms. She denied hallucinations and did not appear to be responding to internal stimuli. - Labs CBC & Chem 7: 01/06/18 08:29 Assessment and Plan (1) Bipolar I disorder, current or most recent episode manic, severe Current Visit: Yes Status: Acute Priority: Medium Code(s): F31.13 - BIPOLAR DISORD, CRNT EPSD MANIC W/O PSYCH FEATURES, SEVERE SNOMED Code(s): 018108473 (2) Hypothyroidism Current Visit: Yes Status: Chronic Priority: Low Code(s): E03.9 - HYPOTHYROIDISM, UNSPECIFIED SNOMED Code(s): 39360835 Plan: Continue inpatient hospitalization due to continued symptoms and signs of lisbeth/ hypomania. She deferred the probate hearing for involuntary hospitalization. Continue Depakote 500 mg by mouth twice a day (serum valproic acid level on 11/2017 was 86.7), Seroquel 600 mg at bedtime and lorazepam 1 mg by mouth 3 times a day when necessary for anxiety or agitation and/or 1 mg IM every 6 hours when necessary for agitation acute psychosis. Continue Synthroid to 50 g per day for the treatment of hypothyroid and adjust the dose as per the recommendation of the design sales consultant. Evaluate clinical status response to treatment daily basis. She is unable to participate in therapeutic groups or activities at the current time.
[2018-01-13] MEDS: QUEtiapine 200 MG TAB PO SCH (21:31)
[2018-01-14] MEDS: LEVOTHYROXINE 50 MCG TAB PO SCH (03:48)
[2018-01-14 04:05] VITALS: TEMP 98.2
[2018-01-14] MEDS: DIVALPROEX 500 MG TABLET.DR PO SCH ×2 (08:58→21:18)
--- NOTE | 2018-01-14 12:12 | P.PN ---
Subjective Progress Note Date: 01/14/18 Principal diagnosis: Bipolar disorder most recent episode manic I reviewed the medical record, interviewed the patient and discuss her treatment and treatment plan during team meeting. Discharge was again the primary theme of the interview. She believes that she would do much better if she were able to return home, being her own in familiar surroundings and have the support of her family. She became obviously distressed when I explained that she remains on involuntary status and we would not be able to discharge her until she deferred or had her court hearing. She denied other problems or concerns. She's been compliant with medication and posed no behavioral problems on the unit. She attended no groups or in therapeutic activities yesterday. She slept 6 hours last night. Objective - Vital Signs Vital signs: Vital Signs Temp 98.2 F 01/14/18 04:04 Pulse 125 H 01/14/18 04:04 Resp 16 01/14/18 04:04 BP 90/58 01/14/18 04:04 Pulse Ox 97 01/05/18 22:11 - Psychiatric Psychiatric Comment(s): She presented as a tall woman with long thick dark hair. She was appropriately dressed and neatly groomed. She did not appear sedated. She did not have difficulty concentrating and attending to the interview. She was not distractible and was able to focus on the interview. She had a somewhat depressed facial expression. She is alert and oriented to person and place. She was not restless and was able to sit throughout the interview. Her speech was spontaneous with a normal rate and normal volume. She was not tangential and circumstantial. She did not slur her words. Her affect was slightly depressed but stable and appropriate.. She did not express suicidal ideation, wishes or homicidal ideation. She did not expressed depressive cognitions such as hopelessness, helplessness or worthlessness. She did not express paranoid or delusional thoughts or ideas. Her thinking was logical and goal directed. She did not demonstrate flight of ideas. She did not demonstrate clang associations and neologisms. She denied hallucinations and did not appear to be responding to internal stimuli. - Labs CBC & Chem 7: 01/06/18 08:29 Assessment and Plan Assessment: Overall she is moderately mentally ill and much improve from admission (1) Bipolar I disorder, current or most recent episode manic, severe Current Visit: Yes Status: Acute Priority: Medium Code(s): F31.13 - BIPOLAR DISORD, CRNT EPSD MANIC W/O PSYCH FEATURES, SEVERE SNOMED Code(s): 790814024 (2) Hypothyroidism Current Visit: Yes Status: Chronic Priority: Low Code(s): E03.9 - HYPOTHYROIDISM, UNSPECIFIED SNOMED Code(s): 99127282 Plan: Continue inpatient hospitalization due to continued symptoms and signs of lisbeth/ hypomania. I incorrectly noted yesterday that she deferred the probate hearing when she did not. Her probate hearing is scheduled for tomorrow at 1 PM unless she defers in the interim. Continue Depakote 500 mg by mouth twice a day ( serum valproic acid level on 01/06/2018 was 86.7), Seroquel 600 mg at bedtime and lorazepam 1 mg by mouth 3 times a day when necessary for anxiety or agitation and/or 1 mg IM every 6 hours when necessary for agitation acute psychosis. Continue Synthroid to 50 g per day for the treatment of hypothyroid and adjust the dose as per the recommendation of the audit consultant. Evaluate clinical status response to treatment daily basis. She is unable to participate in therapeutic groups or activities at the current time.
--- NOTE | 2018-01-14 21:10 | PN ---
PROGRESS NOTE DATE OF SERVICE: January 13, 2018. PRESENTING COMPLAINT: Tired. INTERVAL HISTORY: The patient is seen by me at [address] [place]. Patient admitted with bipolar disorder with psychosis, lisbeth and also thyrotoxicosis. The patient dose of Synthroid has been cut back. The patient looking far more relaxed, able to carry out a better conversation. Tolerating a diet. Not that restless. REVIEW OF SYSTEMS: Done for constitutional, cardiovascular, GI, pulmonary and relevant findings as above. CURRENT MEDICATIONS: Reviewed that include Depakote 500 mg p.o. b.i.d., Synthroid 50 mcg, Seroquel 600 mg p.o. q.h.s. EXAMINATION: VITAL SIGNS: Temperature 98.4, pulse 88, respiration 16, blood pressure 103/60. GENERAL APPEARANCE: Sitting up, more comfortable. EYES: Conjunctivae normal. HEENT: External appearance of nose and ears normal. Oral cavity normal. NECK: JVD not raised. Mass not palpable. RESPIRATORY: Effort normal. LUNGS: Are clear. CARDIOVASCULAR: 1st and 2nd sounds no edema. ABDOMEN: Soft, nontender. Liver and spleen not palpable. PSYCHIATRY: Awake, answering questions far more appropriately today. LABORATORY DATA: Last TSH was 1.99. ASSESSMENT: 1. Bipolar disorder, manic episode with some psychosis. 2. Thyrotoxicosis with over replacement, dose of Synthroid has been cut back. Free T4 has come down. 3. Insomnia from above. 4. Sinus tachycardia from thyrotoxicosis improving. PLAN: Continue current medication and treatment plan. Patient can now be kept on this current dose and can be discharged on the same. MMODL / IJN: [id number] /
[2018-01-14] MEDS: QUEtiapine 200 MG TAB PO SCH (21:18)
[2018-01-15 06:45] VITALS: BP 114/59; PULSE 108
[2018-01-15] MEDS: LEVOTHYROXINE 50 MCG TAB PO SCH (07:07)
[2018-01-15] MEDS: DIVALPROEX 500 MG TABLET.DR PO SCH (08:34)
--- NOTE | 2018-01-15 13:55 | P.DS ---
Providers Date of admission: 01/05/18 22:13 Attending physician: Ehsan Gomez MD Consults: 01/05/18 22:26 Consult Physician Routine Consulting Provider: Juan Diego Gant Consult Reason/Comments: medical management Do you want consulting provider notified?: Yes, Notify in am Primary care physician: Ryne Ngo - Discharge Diagnosis(es) (1) Bipolar I disorder, current or most recent episode manic, severe Current Visit: Yes Status: Acute Priority: High (2) Hypothyroidism Current Visit: Yes Status: Chronic Priority: Low (3) Thyrotoxicosis Current Visit: Yes Status: Resolved Priority: Medium Hospital Course: The patient is a 52-year-old [place] female who has history of a bipolar disorder. She was admitted to the psychiatric unit involuntarily with signs and symptoms of acute lisbeth. During the admission evaluation she was restless, agitated, impulsive and hyperactive. Her speech was disorganized, incoherent and not goal directed. She was unable to provide a coherent history of present illness. According to her , her illness worsened after she stopped Seroquel XR because the insurance would not pay for the brand name medication. He stated that she stopped the medication about 2 weeks prior to admission and she presented as become progressively more manic. She has a well-documented history of bipolar illness in one prior admission to this unit. According to her she's had 5 admissions over the last 10 years. We admitted her to the psychiatric unit involuntarily under the care of this proposal manager writer. We provided a comprehensive biopsychosocial assessment. The product marketing consultant machine skiver completed the initial physical exam and medical history and diagnosed a thyrotoxicosis from over replacement with Synthroid. He recommended to temporarily discontinue the Synthroid and prescribed Lopressor 12.5 mg by mouth 3 times a day for 6 days to address the symptoms of hypothyroidism. Her initial TSH was 0.075 and free T4 was 3.49. On 01/10/2018 the repeat free T4 was 1.99 and he indicated his resume Synthroid 50 g per day. We treated her manic symptoms with a combination of Depakote 500 mg twice a day and Seroquel titrating the dose to 600 mg at bedtime. She received when necessary administration of either lorazepam 1 mg by mouth or IM for agitation or restlessness. Her manic symptoms gradually subsided. She denied side effects to the prescribed psychotropic medications. She met with the family law attorney regarding the involuntary admission process during her acute manic stage. She received a day combined treatment order following the probate hearing. At time of discharge she resented as a casually dressed and casually groomed 52- year-old female who was pleasant on approach. She made eye contact and attended to the interview. She had no distinguishing features or prominent physical abnormalities. She had a bright facial expression. She was alert and oriented to person, place and time. She showed no abnormality of psychomotor activity. She was not agitated or restless. She had no abnormal movements. Her speech was spontaneous with slight increase in rate but normal volume. She had no articulation difficulties. Her affect was bright, stable and appropriate. She denied suicidal ideation, wishes or homicidal ideation. She denied such depressive cognitions as hopelessness, helplessness or worthlessness. She did not express obsessions, phobias, ideas reference, paranoid ideation or delusional thoughts. Her thinking was abstract and associations were coherent and logical. She did not demonstrate clang associations, perseverations or neologisms. She denied hallucinations did not appear to be responding to internal stimuli. Patient Condition at Discharge: Stable Plan - Discharge Summary Discharge Rx Participant: No New Discharge Prescriptions: New Divalproex [Depakote] 500 mg PO BID #60 tablet. Levothyroxine Sodium [Synthroid] 50 mcg PO DAILY@0630 #30 tab QUEtiapine [SEROquel] 600 mg PO HS #90 tab Continue Sesame Oil 1 cap PO DAILY Wheat Germ 1 tab PO DAILY Vitamin B Complex/Folic Acid [B-Complex Tablet] 0.4 mg PO DAILY Silver Drop 1 drop PO DAILY Cholecalciferol [Vitamin D3] 1,000 unit PO DAILY Discontinued Levothyroxine Sodium [Synthroid] 100 mcg PO DAILY@0000 Lurasidone [Latuda] 40 mg PO HS Lisdexamfetamine Dimesylate [Vyvanse] 40 mg PO QAM Discharge Medication List Cholecalciferol [Vitamin D3] 1,000 unit PO DAILY 12/31/17 [History] Sesame Oil 1 cap PO DAILY 12/31/17 [History] Silver Drop 1 drop PO DAILY 12/31/17 [History] Vitamin B Complex/Folic Acid [B-Complex Tablet] 0.4 mg PO DAILY 12/31/17 [ History] Wheat Germ 1 tab PO DAILY 12/31/17 [History] Divalproex [Depakote] 500 mg PO BID #60 tablet. 01/15/18 [Rx] Levothyroxine Sodium [Synthroid] 50 mcg PO DAILY@0630 #30 tab 01/15/18 [Rx] QUEtiapine [SEROquel] 600 mg PO HS #90 tab 01/15/18 [Rx] Follow up Appointment(s)/Referral(s): [facility] [Outside] - 01/16/18 3:00 pm (01/16/18 at 300 with Trista 01/16/[address] Foley ) Ryne Ngo MD [Primary Care Provider] - 1-2 days Discharge Disposition: HOME SELF-CARE
== END 2018-01-15 14:22 | disposition home or self-care (01) | DRG 885 ==
LOC: EC 20:04 → 3MHU 22:13
PROVIDERS: ADMIT Psychiatry & Neurology Psychiatry; ATTEND Psychiatry & Neurology Psychiatry
DX: F31.2 Bipolar disorder, current episode manic severe with psychotic features (principal); T38.1X1A Poisoning by thyroid hormones and substitutes, accidental (unintentional), initial encounter; E05.80 Other thyrotoxicosis without thyrotoxic crisis or storm; F41.9 Anxiety disorder, unspecified; F90.9 Attention-deficit hyperactivity disorder, unspecified type; E03.9 Hypothyroidism, unspecified; F17.200 Nicotine dependence, unspecified, uncomplicated; I10 Essential (primary) hypertension; Z79.899 Other long term (current) drug therapy; Z91.19 Patient's noncompliance with other medical treatment and regimen; Z79.890 Hormone replacement therapy; Y92.009 Unspecified place in unspecified non-institutional (private) residence as the place of occurrence of the external cause
CPT/HCPCS: 80053; 80061; 80164; 80306; 81001; 81025; 82075; 82248; 83036; 84439; 84443; 99284

== ENCOUNTER → 2018-01-22 | Outpatient (CLI) | payer BC | END | disposition home or self-care (01) | LOC: LABWHC1 08:05 | PROVIDERS: ATTEND Psychiatry & Neurology Psychiatry | DX: F30.13 Manic episode, severe, without psychotic symptoms (principal) | CPT/HCPCS: 36415; 80164 ==

== ENCOUNTER → 2018-04-24 | Outpatient (CLI) | payer BC ==
--- NOTE | 2018-04-25 08:02 | MM ---
Reason for exam: screening (asymptomatic). Last mammogram was performed 2 years and 1 month ago. History: Patient is postmenopausal. Took hormonal contraceptives for 6 years. Physical Findings: A clinical breast exam by your physician is recommended on an annual basis and results should be correlated with mammographic findings. MG Screening Mammo w CAD Bilateral CC and MLO view(s) were taken. Prior study comparison: November 15, 2006, workup left diagnostic mammogram. November 08, 2006, bilateral screening mammogram w/CAD. There are scattered fibroglandular densities. Partially obscured nodule 3.4cm from nipple right breast. This finding is changed when compared with previous exams. ASSESSMENT: Incomplete: need additional imaging evaluation, BI-RAD 0 RECOMMENDATION: Special view mammogram and ultrasound of the right breast. [facility] will attempt to contact patient to return for supplemental views and ultrasound.
== END | disposition home or self-care (01) ==
LOC: RADMAMWWP 14:03
PROVIDERS: ATTEND Family Medicine
DX: Z12.31 Encounter for screening mammogram for malignant neoplasm of breast (principal)
CPT/HCPCS: 77067

== ENCOUNTER → 2018-05-06 | Outpatient (CLI) | payer BC ==
--- NOTE | 2018-05-07 09:44 | MM ---
Reason for exam: additional evaluation requested from abnormal screening. Last mammogram was performed less than 1 month ago. History: Patient is postmenopausal. Took hormonal contraceptives for 6 years. Physical Findings: Nurse did not find any significant physical abnormalities on exam. MG 3D Work Up W/Cad RT Spot compression CC, spot compression MLO, and LM view(s) were taken of the right breast. Prior study comparison: April 24, 2018, bilateral MG screening mammo w CAD. March 20, 2016, mammogram, performed at [facility]. There are scattered fibroglandular densities. Finding: There is a 7 mm equal density (isodense), oval mass in the subareolar position of the right breast. These results were verbally communicated with the patient and result sheet given to the patient on 05/06/18. ASSESSMENT: Probably benign, BI-RAD 3 RECOMMENDATION: Follow-up diagnostic mammogram of the right breast in 6 months.
--- NOTE | 2018-05-07 09:47 | USB ---
Reason for exam: additional evaluation requested from abnormal screening. History: Patient is postmenopausal. Took hormonal contraceptives for 6 years. US Breast Workup RT Right complete breast ultrasound includes all four quadrants, the retroareolar region and axilla. Finding demonstrates a 0.7 x 0.8 x 0.6cm cystic lesion at the posterior nipple. These results were verbally communicated with the patient and result sheet given to the patient on 05/06/18. ASSESSMENT: Probably benign, BI-RAD 3 RECOMMENDATION: Follow-up diagnostic mammogram of the right breast in 6 months.
== END ==
LOC: RADMAMWWP 13:43
PROVIDERS: ATTEND Family Medicine
DX: R92.8 Other abnormal and inconclusive findings on diagnostic imaging of breast (principal)
CPT/HCPCS: 77061; 77065

== ENCOUNTER → 2019-07-31 | Outpatient (CLI) | payer BC ==
--- NOTE | 2019-07-31 09:34 | US ---
EXAMINATION TYPE: US thyroid st tissue head/neck DATE OF EXAM: 07/31/2019 COMPARISON: CT neck July 03, 2017 CLINICAL HISTORY: E04.9 goiter. MEASUREMENTS: GLAND SIZE: Right Lobe: 4.1 x 1.3 x 1.3cm Grossly heterogeneous Left Lobe: 4.0 x 1.1 x 1.1cm Grossly heterogeneous Isthmus Thickness: 0.2 NODULES RIGHT: # of nodules measured on right: 0 LEFT: # of nodules measured on left: 0 ISTHMUS: # of nodules measured within isthmus: 0 Bilateral neck scanned, no evidence of lymphadenopathy. Heterogeneous slightly small thyroid without discrete nodule. IMPRESSION: As above. Findings correlate with 2017 CT.
== END | disposition home or self-care (01) ==
LOC: RADUSWWP 08:51
PROVIDERS: ATTEND Family Medicine
DX: E04.9 Nontoxic goiter, unspecified (principal)
CPT/HCPCS: 76536

== ENCOUNTER → 2022-02-09 | Outpatient (CLI) | payer BC ==
--- NOTE | 2022-02-09 12:39 | CT ---
EXAMINATION TYPE: CT hip LT wo con DATE OF EXAM: 02/09/2022 COMPARISON: None HISTORY: 56-year-old female M25.552, left hip pain. TECHNIQUE: Contiguous axial scanning of the left hip without IV contrast. Coronal and sagittal recons tructions performed. CT DLP: 371.10 mGycm Automated exposure control for dose reduction was used. FINDINGS: There is moderate degenerative spurring and posterior joint space narrowing at the left hip. No fract ure of the proximal left femur is identified though the presence of osteopenia limits evaluation. There is a nondisplaced transverse fracture involving the inferior pubic ramus unable to clearly iden tify a corresponding superior pubic ramus fracture. There does seem to be some soft tissue swelling a djacent to the superior pubic ramus that could represent an occult injury. No hip joint effusion. IMPRESSION: 1. NONDISPLACED TRANSVERSE FRACTURE LEFT INFERIOR PUBIC RAMUS. 2. UNABLE TO IDENTIFY A CORRESPONDING SUPERIOR PUBIC RAMUS FRACTURE BUT THERE DOES SEEM TO BE SOME SO FT TISSUE SWELLING ADJACENT TO THE BONE HERE. GIVEN THE DEGREE OF OSTEOPENIA, OCCULT, NONDISPLACED CO RTICAL FRACTURE DIFFICULT TO EXCLUDE. 3. MODERATE LEFT HIP OA.
== END | disposition home or self-care (01) ==
LOC: RADCTMAIN 11:49
PROVIDERS: ATTEND Family Medicine
DX: S32.592A Other specified fracture of left pubis, initial encounter for closed fracture (principal)

== ENCOUNTER 2023-07-21 13:07 | Emergency (ER) | payer BC ==
[2023-07-21] MEDS ORDERED: SODIUM CHLORIDE 0.9% 1,000 ML IV STA (13:25)
[2023-07-21] MEDS ORDERED: KETOROLAC 15 MG/ML 1 ML VIAL IVP STA (13:25)
[2023-07-21 13:26] VITALS: PULSE 88; RESP 20; TEMP 98.2
--- NOTE | 2023-07-21 13:38 | ED ---
Abdominal Pain HPI - General Chief Complaint: Abdominal Pain Stated Complaint: Constipation Time Seen by Provider: 07/21/23 13:17 Source: patient, RN notes reviewed, old records reviewed Mode of arrival: ambulatory Limitations: no limitations - History of Present Illness Initial Comments: This is a 57-year-old female to the ER for evaluation. Patient to the emergency department today for evaluation regards to bowel pain with significant constipation has not had a significant adequate bowel movement about a week now. She was put on a bowel regimen a few days ago and still has no output. No fevers no nausea no vomiting no other complaints no medical history no surgical MD Complaint: abdominal pain -: days(s) Location: diffuse Radiation: none Migration to: LLQ Severity: mild Severity scale (1-10): 2 Quality: cramping Improves With: nothing Worsens With: nothing Associated Symptoms: nausea Treatments Prior to Arrival: other (0) - Related Data Home Medications Medication Instructions Recorded Confirmed ALPRAZolam [Xanax] 1 mg PO BID PRN 01/12/19 01/12/19 Levothyroxine Sodium [Synthroid] 100 mcg PO DAILY@0630 01/12/19 01/12/19 Melatonin 3 mg PO HS PRN 01/12/19 01/12/19 Previous Rx's Medication Instructions Recorded Divalproex [Depakote] 500 mg PO BID #60 tablet. 01/15/18 QUEtiapine [SEROquel] 600 mg PO HS #90 tab 01/15/18 Allergies Allergy/AdvReac Type Severity Reaction Status Date / Time No Known Allergies Allergy Verified 07/21/23 13:13 Review of Systems ROS Statement: Those systems with pertinent positive or pertinent negative responses have been documented in the HPI. ROS Other: All systems not noted in ROS Statement are negative. Past Medical History Past Medical History: GERD/Reflux, Thyroid Disorder Additional Past Medical History / Comment(s): KIDNEY STONES History of Any Multi-Drug Resistant Organisms: None Reported Past Surgical History: Tonsillectomy Additional Past Surgical History / Comment(s): D&C, colonoscopy, LITHROTRIPSY, COLONOSCOPY Past Anesthesia/Blood Transfusion Reactions: No Reported Reaction Past Psychological History: ADD/ADHD, Anxiety, Bipolar Smoking Status: Never smoker Past Alcohol Use History: Occasional Past Drug Use History: None Reported - Past Family History Mother Family Medical History: No Reported History Father Additional Family Medical History / Comment(s): Father is alive and well at age 79, pts. paternal grandfather had an NM Brother(s) Additional Family Medical History / Comment(s): Patient has 4 brothers one from suicide. She has 1 sister with no major medical problems. General Exam Limitations: no limitations General appearance: alert, in no apparent distress Head exam: Present: atraumatic, normocephalic, normal inspection Eye exam: Present: normal appearance, PERRL, EOMI. Absent: scleral icterus, conjunctival injection, periorbital swelling ENT exam: Present: normal exam, mucous membranes moist Neck exam: Present: normal inspection. Absent: tenderness, meningismus, lymphadenopathy Respiratory exam: Present: normal lung sounds bilaterally. Absent: respiratory distress, wheezes, rales, rhonchi, stridor Cardiovascular Exam: Present: regular rate, normal rhythm, normal heart sounds. Absent: systolic murmur, diastolic murmur, rubs, gallop, clicks GI/Abdominal exam: Present: soft, normal bowel sounds. Absent: distended, tenderness, guarding, rebound, rigid Extremities exam: Present: normal inspection, full ROM, normal capillary refill. Absent: tenderness, pedal edema, joint swelling, calf tenderness Back exam: Present: normal inspection Neurological exam: Present: alert, oriented X3, CN II-XII intact Psychiatric exam: Present: normal affect, normal mood Skin exam: Present: warm, dry, intact, normal color. Absent: rash Course Vital Signs 07/21/23 07/21/23 13:11 15:22 Temperature 98.2 F Pulse Rate 88 Respiratory 20 Rate Blood Pressure 116/82 104/62 O2 Sat by Pulse 99 Oximetry - Reevaluation(s) Reevaluation #1: 07/21/23 13:37 Record is reviewed Reevaluation #2: Patient has persistent abdominal pain although improving here in the ER Reevaluation #3: Patient informed of results and questions answered Reevaluation #4: 07/21/23 13:37 Was pt. sent in by a medical professional or institution (, PA, [employer]ER, urgent care, hospital, or [place] [facility] facility...) When possible be specific @ -no Did you speak to anyone other than the patient for history (EMS, parent, family, police, friend...)? What history was obtained from this source @ -no Did you review nursing and triage notes (agree or disagree)? Why? @ -agree Are old charts reviewed (outside hosp., previous admission, EMS record, old EKG, old radiological studies, urgent care reports/EKG's, [place] [facility] facility records)? Report findings @ -yes Differential Diagnosis (chest pain, altered mental status, abdominal pain women, abdominal pain men, vaginal bleeding, weakness, fever, dyspnea, syncope, headache, dizziness, GI bleed, back pain, seizure, CVA, palpatations, mental health, musculoskeletal)? @ -prior EKG interpreted by me (3pts min.). @ -no X-rays interpreted by me (1pt min.). @ -no CT interpreted by me (1pt min.). @ -yes negative for acute disease U/S interpreted by me (1pt. min.). @ -no What testing was considered but not performed or refused? (CT, X-rays, U/S, labs)? Why? @ -none What meds were considered but not given or refused? Why? @ -none Did you discuss the management of the patient with other professionals (professionals i.e. , PA, [employer]ER, lab, RT, psych nurse, social worker school, gyroscopic engineering technician, teacher, disability insurance hearing officer, nurse case management)? Give summary @ -no Was smoking cessation discussed for >3mins.? @ -no Was critical care preformed (if so, how long)? @ -no Were there social determinants of health that impacted care today? How? (Homelessness, low income, unemployed, alcoholism, drug addiction, transportation, low edu. Level, literacy, decrease access to med. care, prison, rehab)? @ -none Was there de-escalation of care discussed even if they declined (Discuss DNR or withdrawal of care, Hospice)? DNR status @ -no What co-morbidities impacted this encounter? (DM, HTN, Smoking, COPD, CAD, Cancer, CVA, ARF, Chemo, Hep., AIDS, mental health diagnosis, sleep apnea, morbid obesity)? @ -none Was patient admitted / discharged? Hospital course, mention meds given and route, prescriptions, significant lab abnormalities, going to OR and other pertinent info. @ - 57 female to the emergency department today with severe abdominal pain secondary to kidney stone right-sided kidney stone. Patient has adequate pain control currently and can be discharged home Discharge Undiagnosed new problem with uncertain prognosis? @ -no Drug Therapy requiring intensive monitoring for toxicity (Heparin, Nitro, Insulin, Cardizem)? @ -no Were any procedures done? @ -no Diagnosis/symptom? @ -Abdominal pain and constipation Acute, or Chronic, or Acute on Chronic? @ -Acute Uncomplicated (without systemic symptoms) or Complicated (systemic symptoms)? @ -Complicated Side effects of treatment? @ -no Exacerbation, Progression, or Severe Exacerbation? @ -exacerbation Poses a threat to life or bodily function? How? (Chest pain, USA, NM, pneumonia, PE, COPD, DKA, ARF, appy, cholecystitis, CVA, Diverticulitis, Homicidal, Suicidal, threat to staff... and all critical care pts) @ -no Reevaluation #5: 07/21/23 13:40 Differential Abdominal Pain Women: Appendicitis, Cholecystitis, diverticulosis, ischemic bowel, pancreatitis, hepatitis, UTI, gastroenteritis, AAA, incarcerated hernia, bowel obstruction, constipation, inflammatory bowel, hepatitis, peptic ulcer disease, splenic infarction, perforated viscus, vulvitis, ovarian torsion, PID, kidney stone, placenta abruption, this is not meant to be an all-inclusive list Medical Decision Making - Lab Data Result diagrams: 07/21/23 13:29 07/21/23 13:29 Lab Results 07/21/23 07/21/23 Range/Units 13:29 13:29 WBC 4.3 (3.8-10.6) k/uL RBC 4.20 (3.80-5.40) m/uL Hgb 13.6 (11.4-16.0) gm/dL Hct 40.4 (34.0-46.0) % MCV 96.2 (80.0-100.0) fL MCH 32.5 (25.0-35.0) pg MCHC 33.8 (31.0-37.0) g/dL RDW 12.3 (11.5-15.5) % Plt Count 189 (150-450) k/uL MPV 7.4 Neutrophils % 65 % Lymphocytes % 26 % Monocytes % 5 % Eosinophils % 2 % Basophils % 0 % Neutrophils # 2.8 (1.3-7.7) k/uL Lymphocytes # 1.1 (1.0-4.8) k/uL Monocytes # 0.2 (0-1.0) k/uL Eosinophils # 0.1 (0-0.7) k/uL Basophils # 0.0 (0-0.2) k/uL Sodium 139 (137-145) mmol/L Potassium 4.1 (3.5-5.1) mmol/L Chloride 106 (98-107) mmol/L Carbon Dioxide 25 (22-30) mmol/L Anion Gap 8 mmol/L BUN 13 (7-17) mg/dL Creatinine 0.69 (0.52-1.04) mg/dL Est GFR (CKD-EPI)AfAm >90 (>60 ml/min/1.73 sqM) Est GFR (CKD-EPI)NonAf >90 (>60 ml/min/1.73 sqM) Glucose 96 (74-99) mg/dL Calcium 8.9 (8.4-10.2) mg/dL Phosphorus 3.6 (2.5-4.5) mg/dL Magnesium 2.1 (1.6-2.3) mg/dL Total Bilirubin 0.7 (0.2-1.3) mg/dL AST 24 (14-36) U/L ALT 15 (4-34) U/L Alkaline Phosphatase 69 (38-126) U/L Total Protein 6.5 (6.3-8.2) g/dL Albumin 3.9 (3.5-5.0) g/dL Amylase 62 (30-110) U/L Lipase 97 (23-300) U/L - Radiology Data Radiology results: report reviewed (CT of abdomen pelvis is negative for acute disease), image reviewed Disposition Clinical Impression: Abdominal colic, Constipation, Abdominal pain Disposition: HOME SELF-CARE Condition: Good Instructions (If sedation given, give patient instructions): Abdominal Pain (ED) Is patient prescribed a controlled substance at d/c from ED?: No Referrals: Nonstaff,Physician [Primary Care Provider] - 1-2 days Time of Disposition: 15:00
[2023-07-21 14:05] LABS: Basophils % (A) 0 %; Eosinophils # (A) 0.1 k/uL (0-0.7); Eosinophils % (A) 2 %; HCT 40.4 % (34.0-46.0); HGB 13.6 gm/dL (11.4-16.0); Lymphocytes # (A) 1.1 k/uL (1.0-4.8); Lymphocytes % (A) 26 %; MCH 32.5 pg (25.0-35.0); MCHC 33.8 g/dL (31.0-37.0); MCV 96.2 fL (80.0-100.0); Mean Platelet Volume 7.4; Monocytes # (A) 0.2 k/uL (0-1.0); Monocytes % (A) 5 %; Neutrophils # (A) 2.8 k/uL (1.3-7.7); Neutrophils % (A) 65 %; Platelet Count 189 k/uL (150-450); RDW 12.3 % (11.5-15.5); WBC 4.3 k/uL (3.8-10.6)
[2023-07-21 14:22] LABS: ALT 15 U/L (4-34); AST 24 U/L (14-36); African American GFR (CKD) >90 (>60 ml/min/1.73 sqM); Albumin 3.9 g/dL (3.5-5.0); Alkaline Phosphatase 69 U/L (38-126); Amylase 62 U/L (30-110); Anion Gap 8 mmol/L; Blood Urea Nitrogen 13 mg/dL (7-17); Calcium 8.9 mg/dL (8.4-10.2); Carbon Dioxide 25 mmol/L (22-30); Chloride 106 mmol/L (98-107); Glucose 96 mg/dL (74-99); Lipase 97 U/L (23-300); Magnesium 2.1 mg/dL (1.6-2.3); Non-African American GFR(CKD) >90 (>60 ml/min/1.73 sqM); Phosphorus 3.6 mg/dL (2.5-4.5); Potassium 4.1 mmol/L (3.5-5.1); Sodium 139 mmol/L (137-145); Total Bilirubin 0.7 mg/dL (0.2-1.3); Total Protein 6.5 g/dL (6.3-8.2)
--- NOTE | 2023-07-21 14:35 | CT ---
EXAMINATION TYPE: CT abdomen pelvis w con DATE OF EXAM: 07/21/2023 COMPARISON: None HISTORY: Constipation. CT DLP: 897 mGycm Automated exposure control for dose reduction was used. TECHNIQUE: Helical acquisition of images was performed from the lung bases through the pelvis. CONTRAST: Performed without Oral Contrast and with IV Contrast, patient injected with 100 ml mL of Isovue 300. FINDINGS: The lung bases are clear. The gallbladder is normal without distention, wall thickening, pericholecystic fluid or gallstones. T here is no biliary ductal dilatation. There is no focal mass or organomegaly involving the liver, pancreas, spleen or adrenal glands. There is a simple hepatic cyst in the dome of the liver. There is no solid renal mass or hydronephrosis and there is homogeneous contrast enhancement of the r enal parenchyma. There is an 8.6 mm nonobstructing left renal calculus 5 mm nonobstructing right lupe l calculus. The caliber the abdominal aorta is normal is no retroperitoneal adenopathy or hemorrhage. The bowel loops are normal in caliber and there is no evidence of dilatation or obstruction. No infla mmatory changes are identified in the bowel wall or mesentery. There is no free intraperitoneal air or fluid. No pelvic mass, free fluid, abscess or adenopathy. The osseous structures and soft tissues are intact. IMPRESSION: 1. No acute changes within the abdomen or pelvis. 2. Nonobstructing renal calcifications.
[2023-07-21 15:41] VITALS: BP 104/62
== END 2023-07-21 15:30 | disposition home or self-care (01) ==
LOC: EC 13:07
DX: K59.00 Constipation, unspecified (principal); E07.9 Disorder of thyroid, unspecified; F32.A Depression, unspecified; F41.9 Anxiety disorder, unspecified; Z79.890 Hormone replacement therapy; Z79.899 Other long term (current) drug therapy
CPT/HCPCS: 36415; 80053; 82150; 83690; 83735; 84100; 85025; 74177; 99284; 96374; 96361; J1885; Q9967

== ENCOUNTER → 2023-09-04 | Outpatient (CLI) | payer BC ==
--- NOTE | 2023-09-17 08:37 | MM ---
Reason for Exam: Screening (asymptomatic). Last screening mammogram was performed 12 month(s) ago. Patient History: Menarche at age 15. First Full-Term at age 24. Postmenopausal. Patient has history of breast feeding. Patient used Hormonal Contraceptives for 6 years. Risk Values: Anjelica 5 year model risk: 1.4%. NCI Lifetime model risk: 7.8%. Prior Study Comparison: 03/20/2016 Screening Mammogram, [facility]. 04/24/2018 Bilateral Screening Mammogram, [facility]. 05/06/2018 Right Diagnostic Mammogram, [facility]. 08/14/2022 Bilateral Screening Mammogram, [facility]. Tissue Density: There are scattered fibroglandular densities. Findings: Analyzed By CAD. There is no suspicious group of microcalcifications or new suspicious mass. Overall Assessment: Negative, BI-RAD 1 Management: Screening Mammogram of both breasts in [address] [facility] will attempt to contact patient to return for supplemental views and ultrasound if indicated. Patient should continue monthly self-breast exams. A clinical breast exam by your physician is recommended on an annual basis. This exam should not preclude additional follow-up of suspicious palpable abnormalities. Note on Anjelica scores and lifetime risk: 1. A Anjelica score greater than 3% is considered moderate risk. If this is the case, consider specialist referral to assess eligibility for a risk reducing agent. 2. If overall lifetime risk for the development of breast cancer is 20% or higher, the patient may qualify for future screening with alternating mammogram and breast MRI. Electronically signed and approved by: Lino Porras DO
== END | disposition home or self-care (01) ==
LOC: RADMAMWWP 15:04
PROVIDERS: ATTEND Obstetrics & Gynecology
DX: Z12.31 Encounter for screening mammogram for malignant neoplasm of breast (principal); Z78.0 Asymptomatic menopausal state
CPT/HCPCS: 77063; 77067